=== PATIENT | female | born 1990 | race Caucasian/White ===

== ENCOUNTER → 2017-02-12 | Outpatient (CLI) | payer SELFPAY ==
[~2017-02-12] MED LIST: BIRTH CONTROL PILL PO; CARI350T19 PO; CLON1TAB PO; HYDR50IN3 PO; antidepressant
[2017-02-12 17:23] LABS: CONTROL LINE UCG INT CTR LINE PRESENT
[2017-02-12 17:56] LABS: BASO % 0.6 % (0.0-1.0); EOS # 0.2 K/mm3 (0.0-0.50); EOS % 2.5 % (0.0-3.0); LARGE UNSTAINED CELL # 0.2 K/mm3 (0.0-0.4); LARGE UNSTAINED CELL % 1.8 % (0.0-4.0); LYMPH # 3.5 K/mm3 (1.5-6.5); MEAN CORPUSCULAR HEMOGLOBIN 29.8 pg (27.0-33.0); MEAN CORPUSCULAR HGB CONC 33.6 g/dl (32.0-36.5); MEAN CORPUSCULAR VOLUME 88.8 fl (80.0-96.0); MONO # 0.4 K/mm3 (0.0-0.8); MONO % 5.1 % (0.0-5.0); NEUTROPHILS # 4.2 K/mm3 (1.8-7.7); PLATELET COUNT, AUTOMATED 249 k/mm3 (150-450); RED CELL DISTRIBUTION WIDTH 12.9 % (11.5-14.5); WHITE BLOOD COUNT 8.5 K/mm3 (4.0-10.0)
[2017-02-12 20:10] LABS: ALBUMIN 4.1 GM/DL (3.2-5.2); ALBUMIN/GLOBULIN RATIO 1.21 (1.00-1.93); ALKALINE PHOSPHATASE 81 U/L (45-117); ALT/SGPT 39 U/L (12-78); ANION GAP 6 MEQ/L (8-16); AST/SGOT 27 U/L (15-37); BILIRUBIN,TOTAL 0.9 MG/DL (0.2-1.0); BLOOD UREA NITROGEN 13 MG/DL (7-18); CARBON DIOXIDE LEVEL 30 MEQ/L (21-32); CHLORIDE LEVEL 100 MEQ/L (98-107); CREATININE FOR GFR 0.96 MG/DL (0.55-1.02); GLOMERULAR FILTRATION RATE > 60.0 (>60); GLUCOSE, FASTING 105 MG/DL (70-105); POTASSIUM SERUM 4.2 MEQ/L (3.5-5.1); SODIUM LEVEL 136 MEQ/L (136-145); TOTAL PROTEIN 7.5 GM/DL (6.4-8.2)
== END ==
LOC: M LAB 16:35
PROVIDERS: ATTEND Family Medicine
DX: Z13.9 Encounter for screening, unspecified (principal); F11.20 Opioid dependence, uncomplicated

== ENCOUNTER → 2017-02-21 | Outpatient (CLI) | payer SELFPAY ==
--- NOTE | 2017-02-21 18:52 | ECGEPIP ---
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
== END ==
LOC: M EKG 14:05
PROVIDERS: ATTEND Family Medicine
DX: Z13.9 Encounter for screening, unspecified (principal); F11.20 Opioid dependence, uncomplicated

== ENCOUNTER 2017-04-16 13:01 | Emergency (ER) | payer OTHER, SELFPAY ==
[~2017-04-16] VITALS: Ht 167.6 cm; Wt 77.5 kg
[2017-04-16 13:02] VITALS: BP 140/93
[2017-04-16] MEDS ORDERED: METH40TA PO (13:17)
== END 2017-04-16 14:10 | disposition home or self-care (01) ==
LOC: M ED 13:56
DX: S40.861A Insect bite (nonvenomous) of right upper arm, initial encounter (principal); S40.862A Insect bite (nonvenomous) of left upper arm, initial encounter; W57.XXXA Bitten or stung by nonvenomous insect and other nonvenomous arthropods, initial encounter; Y92.019 Unspecified place in single-family (private) house as the place of occurrence of the external cause; Y93.9 Activity, unspecified; Y99.9 Unspecified external cause status; J30.81 Allergic rhinitis due to animal (cat) (dog) hair and dander; J30.2 Other seasonal allergic rhinitis; Z79.891 Long term (current) use of opiate analgesic; Z79.3 Long term (current) use of hormonal contraceptives; Z88.1 Allergy status to other antibiotic agents

== ENCOUNTER 2018-09-04 13:36 | Emergency (ER) | payer OTHER ==
[2018-09-04] MEDS: ONDANSETRON 4 MG ORAL DISINTEGRATING TAB (Q0162 PER 1MG) PO (15:30)
== END 2018-09-04 16:24 | disposition home or self-care (01) ==
LOC: M ED 13:36
DX: R11.2 Nausea with vomiting, unspecified (principal)
CPT/HCPCS: Q0162

== ENCOUNTER → 2018-09-15 | Outpatient (CLI) | payer OTHER ==
[2018-09-15 11:37] LABS: HEMATOCRIT 42.7 % (36.0-47.0); HEMOGLOBIN 14.8 g/dl (12.0-15.5); MEAN CORPUSCULAR HEMOGLOBIN 29.2 pg (27.0-33.0); MEAN CORPUSCULAR HGB CONC 34.7 g/dl (32.0-36.5); MEAN CORPUSCULAR VOLUME 84.4 fl (80.0-96.0); PLATELET COUNT, AUTOMATED 295 10^3/uL (150-450); RED BLOOD COUNT 5.06 10^6/uL (4.00-5.40); RED CELL DISTRIBUTION WIDTH 12.6 % (11.5-14.5); WHITE BLOOD COUNT 11.6 10^3/uL (4.0-10.0)
[2018-09-15 13:03] LABS: CONTROL LINE HCG INT CTR LINE PRESENT; HCG, SERUM QUALITATIVE POSITIVE (NEGATIVE)
[2018-09-15 13:06] LABS: CHLAMYDIA DNA AMPLIFICATION NEGATIVE (NEGATIVE); GC DNA AMPLIFICATION NEGATIVE (NEGATIVE)
[2018-09-15 13:39] LABS: ALBUMIN 3.6 GM/DL (3.2-5.2); ALBUMIN/GLOBULIN RATIO 0.86 (1.00-1.93); ALKALINE PHOSPHATASE 82 U/L (45-117); ALT/SGPT 61 U/L (12-78); ANION GAP 13 MEQ/L (8-16); AST/SGOT 28 U/L (7-37); BILIRUBIN,TOTAL 0.5 MG/DL (0.2-1.0); BLOOD UREA NITROGEN 11 MG/DL (7-18); CALCIUM LEVEL 9.1 MG/DL (8.5-10.1); CARBON DIOXIDE LEVEL 23 MEQ/L (21-32); CHLORIDE LEVEL 101 MEQ/L (98-107); CREATININE FOR GFR 0.66 MG/DL (0.55-1.30); GLOMERULAR FILTRATION RATE > 60.0 (>60); GLUCOSE, FASTING 95 MG/DL (70-100); POTASSIUM SERUM 3.6 MEQ/L (3.5-5.1); SODIUM LEVEL 137 MEQ/L (136-145); TOTAL PROTEIN 7.8 GM/DL (6.4-8.2)
== END ==
LOC: M LAB 10:32
DX: F11.20 Opioid dependence, uncomplicated (principal)
CPT/HCPCS: 93005

== ENCOUNTER → 2018-11-26 | Outpatient (CLI) | payer OTHER ==
[~2018-11-26] MED LIST changes: +METH40TA PO; +SUBO8MIS SL; +ZOFR4TAB14 PO
--- NOTE | 2018-11-26 22:31 | REP ---
Clinical: Anatomical evaluation. Comparison: None . Findings: Examination demonstrates a single live intrauterine in breech presentation. motion is identified by technologist. Placenta is noted anterior and grade grade 1 without evidence for placenta previa or abruption. Amniotic fluid volume is normal. Cervix measures 4.2 cm in length and appears closed. No evidence for nuchal cord. Gestational age by current measurements 17 weeks 6 days with CANDICE 04/30/2019 . FHR equals 147 beats per minute. BPD 4.0 cm 18 weeks 0 days HC 14.4 cm 17 weeks 4 days AC 12.4 cm 18 weeks 0 days FL 2.7 cm 18 weeks 1 day HL 2.7 cm 18 weeks 4 days HC/AC ratio 1.16 Estimated weight 222 grams ( 52nd percentile). Anatomical assessment demonstrates normal structures including cranium, choroid plexus, cavum, cerebellum/posterior fossa, facial features, lungs, four-chamber heart/ left ventricular outflow tract, diaphragm, stomach, cord insertion/three-vessel cord, kidneys/bladder, and extremities. Limited evaluation of the right cardiac ventricular outflow tract and spine noted. Impression: Single live intrauterine in breech presentation demonstrating appropriate weight to age by current measurements. Limited evaluation of the right cardiac ventricular outflow tract and spine noted. Remainder of the anatomical assessment is complete and normal. Electronically Signed by Stu Morris MD 11/26/2018 10:21 P
== END ==
LOC: M SMT 12:55
PROVIDERS: ATTEND Advanced Practice Midwife
DX: Z34.82 Encounter for supervision of other normal pregnancy, second trimester (principal); Z3A.18 18 weeks gestation of pregnancy

== ENCOUNTER → 2018-12-17 | Outpatient (CLI) | payer OTHER ==
[2018-12-17 18:41] LABS: BASO % 0.2 % (0.0-1.0); EOS # 0.1 10^3/uL (0.0-0.50); EOS % 1.1 % (0.0-3.0); HEMATOCRIT 38.7 % (36.0-47.0); HEMOGLOBIN 12.9 g/dl (12.0-15.5); LYMPH # 2.1 10^3/uL (1.5-6.5); LYMPH % 23.4 % (24.0-44.0); MEAN CORPUSCULAR HEMOGLOBIN 29.3 pg (27.0-33.0); MEAN CORPUSCULAR HGB CONC 33.3 g/dl (32.0-36.5); MONO # 0.4 10^3/uL (0.0-0.8); MONO % 4.3 % (0.0-5.0); NEUTROPHILS # 6.2 10^3/uL (1.8-7.7); NEUTROPHILS % 70.5 % (36.0-66.0); PLATELET COUNT, AUTOMATED 235 10^3/uL (150-450); WHITE BLOOD COUNT 8.8 10^3/uL (4.0-10.0)
[2018-12-17 21:01] LABS: CHLAMYDIA DNA AMPLIFICATION NEGATIVE (NEGATIVE); GC DNA AMPLIFICATION NEGATIVE (NEGATIVE)
[2018-12-19 11:25] LABS: HEPATITIS C VIRUS ABY INDEX > 11.0 INDEX (<0.8); HIV 1&2 SCREEN CENTAUR NEGATIVE (NEGATIVE); RUBELLA IgG QUALITATIVE IMMUNE (IMMUNE)
== END ==
LOC: M SMT 14:54
PROVIDERS: ATTEND Advanced Practice Midwife
DX: Z34.91 Encounter for supervision of normal pregnancy, unspecified, first trimester (principal)

== ENCOUNTER → 2019-01-12 | Outpatient (CLI) | payer OTHER ==
--- NOTE | 2019-01-13 03:11 | REP ---
Clinical: Anatomical evaluation. Comparison: 11/26/2018 . Findings: Examination demonstrates a single live intrauterine in cephalic presentation. motion is identified by technologist. Placenta is noted anterior and grade grade 1 without evidence for placenta previa or abruption. Amniotic fluid volume is normal. Cervix measures 4.3 cm in length and appears closed. No evidence for nuchal cord. Gestational age by first US 24 weeks 4 days with CANDICE 04/30/2019 . Gestational age by current measurements 24 weeks 3 days with CANDICE 05/01/2019 . FHR equals 157 beats per minute. Estimated weight 775 grams ( 59th percentile). Anatomical assessment demonstrates normal structures including cranium, choroid plexus, cavum, cerebellum/posterior fossa, facial features, lungs, four-chamber heart/ventricular outflow tracts, diaphragm, stomach, cord insertion/three-vessel cord, kidneys/bladder, spine, and extremities. Impression: Single live intrauterine in cephalic presentation demonstrating appropriate interval growth. In conjunction with prior examination anatomical assessment is complete and normal. No gross abnormalities are identified. Electronically Signed by Stu Morris MD 01/13/2019 03:03 A
== END ==
LOC: M SMT 12:41
PROVIDERS: ATTEND Advanced Practice Midwife
DX: Z34.82 Encounter for supervision of other normal pregnancy, second trimester (principal); Z3A.24 24 weeks gestation of pregnancy

== ENCOUNTER 2019-02-06 10:16 | Outpatient (CLI) | payer OTHER ==
[~2019-02-06] VITALS: Ht 167.6 cm; Wt 96.0 kg
[2019-02-06] MEDS ORDERED: PRENTAB9 PO (10:47)
[2019-02-06] MEDS ORDERED: ACET25TA12 PO (10:47)
[2019-02-06] MEDS ORDERED: METH10CO PO (10:55)
[2019-02-06] MEDS ORDERED: LAMI1TAB7 PO (10:55)
[2019-02-06] MEDS ORDERED: TUMS500C PO (10:55)
[2019-02-06] MEDS ORDERED: CLON-412 PO (10:55)
[2019-02-06 10:56] VITALS: BP 111/58
[2019-02-06 12:01] LABS: ALBUMIN 2.8 GM/DL (3.2-5.2); ALT/SGPT 24 U/L (12-78); AMYLASE 39 U/L (25-115); BILIRUBIN,TOTAL 0.3 MG/DL (0.2-1.0); BLOOD UREA NITROGEN 10 MG/DL (7-18); CALCIUM LEVEL 8.5 MG/DL (8.5-10.1); CARBON DIOXIDE LEVEL 24 MEQ/L (21-32); CHLORIDE LEVEL 102 MEQ/L (98-107); CREATININE FOR GFR 0.49 MG/DL (0.55-1.30); GLOMERULAR FILTRATION RATE > 60.0 (>60); GLUCOSE, FASTING 83 MG/DL (70-100); LIPASE 72 U/L (73-393); POTASSIUM SERUM 4.1 MEQ/L (3.5-5.1); SODIUM LEVEL 135 MEQ/L (136-145); TOTAL PROTEIN 6.9 GM/DL (6.4-8.2)
--- NOTE | 2019-02-06 12:07 | REP ---
RIGHT UPPER QUADRANT SONOGRAPHY: HISTORY: Epigastric pain. A history of hepatitis C. at 28 weeks. FINDINGS: heart rate is documented at 140 beats per minute during examination. Scanning through right upper quadrant demonstrates a normal sized thin-walled gallbladder without evidence of stone or polyp. Common bile duct is normal measuring 0.4 cm in greatest diameter. No focal liver lesion is seen. Liver is not felt to be enlarged. Pancreas is obscured by abdominal gas. There is no evidence of ascites or right renal abnormality. The right kidney measures 10.2 x 5.6 x 5.1 cm. IMPRESSION: Pancreas not seen. Otherwise negative right upper quadrant sonography. Electronically Signed by Christopher Bertrand MD 02/06/2019 01:38 P
[2019-02-06 12:09] LABS: HEPATITIS B SURFACE ANTIBODY POSITIVE (POSITIVE)
[2019-02-06] MEDS ORDERED: ACETAMINOPHEN 500 MG TAB PO PRN (12:15)
--- NOTE | 2019-02-06 15:06 | IPNPDOC ---
Text Note Date of Service The patient was seen on 02/06/19. NOTE 28yo CANDICE 04/30/19. Presents @ 28w1d with complaints of epigastric pain. Re ports TUMs and zantac are not helping. Denies bleeding, LOF. No UC Cat I tracing. Hx significant for known Hep C without confirmatory labs drawn as of yet. LFT, amylase, lipase and liver sono WNL Remainder of Hepatitis panel pending. Started omeprazole 20mg daily. Enc low fat diet Discharged home. Keep appt next week VS,Fishbone, I+O VS, Fishbone, I+O Laboratory Tests 02/06/19 11:24 Calcium Level 8.5, Aspartate Amino Transf (AST/SGOT) 19, Alanine Ami notransferase (ALT/SGPT) 24, Alkaline Phosphatase 101, Total Bilirubin 0.3, Total Protein 6.9, Albumin 2.8 L Vital Signs Date Time Temp Pulse Resp B/P (MAP) Pulse Ox O2 Delivery O2 Flow Rate FiO2 02/06/19 10:56 99.3 86 111/58 (75) Jacqueline yLn CNM Feb 06, 2019 15:06
[2019-02-06] MEDS ORDERED: OMEPRAZOLE 20 MG CAP PO ONE (15:15)
[2019-02-06 17:05] LABS: AMPHETAMINES URINE REFLEX NEGATIVE (NEGATIVE); BARBITURATES URINE REFLEX NEGATIVE (NEGATIVE); BENZODIAZEPINES URINE REFLEX NEGATIVE (NEGATIVE); CANNABINOIDS URINE REFLEX NEGATIVE (NEGATIVE); COCAINE METABOLITE URINE REFLE NEGATIVE (NEGATIVE); OPIATES URINE REFLEX NEGATIVE (NEGATIVE); PHENCYCLIDINE URINE REFLEX NEGATIVE (NEGATIVE)
[2019-02-06 17:09] LABS: METHADONE URINE REFLEX PENDING CONFIRMATION (NEGATIVE)
[2019-02-12 00:07] LABS: HEPATITIS A IgG TOTAL Negative (Negative); HEPATITIS C QUANTITATION 358380 IU/mL (.); HEPATITIS C VIRUS GENOTYPE 3 (.)
[2019-02-17 10:11] LABS: GC Methadone 7070 ng/mL (Cutoff=100); Methadone Positive (.)
== END 2019-02-06 15:22 | disposition home or self-care (01) ==
LOC: M LDO 10:16
PROVIDERS: ATTEND Advanced Practice Midwife
DX: O26.893 Other specified pregnancy related conditions, third trimester (principal); R10.13 Epigastric pain; Z3A.28 28 weeks gestation of pregnancy
CPT/HCPCS: 36415; 59025; 76705; 80053; 80307; 81596; 82150; 83690; 86706; 86708; 87522; 87902; G0480

== ENCOUNTER → 2019-03-09 | Outpatient (CLI) | payer OTHER ==
[~2019-03-09] MED LIST changes: +ACET25TA12 PO; +CLON-412 PO; +LAMI1TAB7 PO; +METH10CO PO; +PRENTAB9 PO; +TUMS500C PO
[2019-03-09 13:24] LABS: HEMATOCRIT 39.5 % (36.0-47.0); HEMOGLOBIN 13.1 g/dl (12.0-15.5); MEAN CORPUSCULAR HEMOGLOBIN 29.2 pg (27.0-33.0); MEAN CORPUSCULAR HGB CONC 33.2 g/dl (32.0-36.5); PLATELET COUNT, AUTOMATED 269 10^3/uL (150-450); RED BLOOD COUNT 4.49 10^6/uL (4.00-5.40)
== END ==
LOC: M LAB 12:14
PROVIDERS: ATTEND Advanced Practice Midwife
DX: O98.412 Viral hepatitis complicating pregnancy, second trimester (principal); Z3A.00 Weeks of gestation of pregnancy not specified

== ENCOUNTER 2019-04-05 16:39 | Observation (INO) | payer OTHER ==
[~2019-04-05] VITALS: Ht 167.6 cm; Wt 103.6 kg
[2019-04-05] MEDS ORDERED: ZANTTAB PO (17:20)
[2019-04-05] MEDS ORDERED: LR 1,000 ML IV SCH (17:30)
[2019-04-05] MEDS ORDERED: BETAMETHASONE SOLUSPAN 6MG/ML INJ 5ML (J0702) IM SCH (17:30)
[2019-04-05 18:14] LABS: HEMATOCRIT 41.1 % (36.0-47.0); HEMOGLOBIN 13.8 g/dl (12.0-15.5); MEAN CORPUSCULAR HEMOGLOBIN 29.9 pg (27.0-33.0); MEAN CORPUSCULAR HGB CONC 33.6 g/dl (32.0-36.5); PLATELET COUNT, AUTOMATED 221 10^3/uL (150-450); RED BLOOD COUNT 4.62 10^6/uL (4.00-5.40); WHITE BLOOD COUNT 12.2 10^3/uL (4.0-10.0)
[2019-04-05 18:20] LABS: AMPHETAMINES URINE REFLEX NEGATIVE (NEGATIVE); BARBITURATES URINE REFLEX NEGATIVE (NEGATIVE); BENZODIAZEPINES URINE REFLEX NEGATIVE (NEGATIVE); CANNABINOIDS URINE REFLEX NEGATIVE (NEGATIVE); COCAINE METABOLITE URINE REFLE NEGATIVE (NEGATIVE); OPIATES URINE REFLEX NEGATIVE (NEGATIVE); PHENCYCLIDINE URINE REFLEX NEGATIVE (NEGATIVE)
[2019-04-05 21:36] LABS: METHADONE URINE REFLEX PENDING CONFIRMATION (NEGATIVE)
[2019-04-06] MEDS ORDERED: ceFAZolin SOD 1 GM in D5W MINI-BAG PLUS 50 ML IV SCH (02:00)
[2019-04-08 18:27] LABS: GC Methadone 15915 ng/mL (Cutoff=100); Methadone Positive (.)
== END 2019-04-05 23:05 | disposition home or self-care (01) ==
LOC: M LDO 16:39 → M LDI 17:22
PROVIDERS: ADMIT Obstetrics & Gynecology; ATTEND Obstetrics & Gynecology
DX: O60.03 Preterm labor without delivery, third trimester (principal); O99.323 Drug use complicating pregnancy, third trimester; O98.413 Viral hepatitis complicating pregnancy, third trimester; Z79.891 Long term (current) use of opiate analgesic; Z3A.36 36 weeks gestation of pregnancy; F11.11 Opioid abuse, in remission
CPT/HCPCS: 59025; 80307; 85027; 86780; 86850; 86900; 86901; 87081; 96372; 96374; G0480; J0690; J0702

== ENCOUNTER 2019-04-06 17:34 | Outpatient (CLI) | payer OTHER ==
[~2019-04-06] VITALS: Ht 167.6 cm; Wt 104.7 kg
[~2019-04-06 17:34] MED LIST changes: +ZANTTAB PO
[2019-04-06 17:51] VITALS: BP 129/75
[2019-04-06] MEDS ORDERED: BETAMETHASONE SOLUSPAN 6MG/ML INJ 5ML (J0702) IM ONE (18:00)
[2019-04-06 18:26] VITALS: BP 141/66
[2019-04-06 18:40] VITALS: BP 144/77
[2019-04-06 18:41] VITALS: BP 122/58
== END 2019-04-06 18:48 | disposition home or self-care (01) ==
LOC: M LDO 17:34
PROVIDERS: ATTEND Advanced Practice Midwife
DX: O26.899 Other specified pregnancy related conditions, unspecified trimester (principal); Z3A.00 Weeks of gestation of pregnancy not specified
CPT/HCPCS: 59025; 96372; J0702

== ENCOUNTER 2019-04-20 14:06 | Inpatient (IN) | payer OTHER ==
[2019-04-20] VITALS (32 sets, daily range): BP systolic 127–181; BP diastolic 68–115
[~2019-04-20] VITALS: Ht 167.6 cm; Wt 105.9 kg
[2019-04-20] MEDS ORDERED: LACTATED RINGER'S 1000 ML IV STA (14:52)
[2019-04-20] MEDS ORDERED: LAMO150T2 PO (15:19)
[2019-04-20 15:42] LABS: HEMATOCRIT 40.6 % (36.0-47.0); HEMOGLOBIN 13.8 g/dl (12.0-15.5); MEAN CORPUSCULAR HEMOGLOBIN 30.4 pg (27.0-33.0); MEAN CORPUSCULAR VOLUME 89.4 fl (80.0-96.0); PLATELET COUNT, AUTOMATED 200 10^3/uL (150-450); RED BLOOD COUNT 4.54 10^6/uL (4.00-5.40); WHITE BLOOD COUNT 11.7 10^3/uL (4.0-10.0)
[2019-04-20] MEDS ORDERED: FENTANYL 2MCG/ML ROPIVACAINE 0.2% IN 0.9% NACL 100ML IVBAG As Ordered ONE (16:55)
[2019-04-20] MEDS ORDERED: EPIDURAL/PCA KEYS XX PRN (17:15)
[2019-04-20] MEDS ORDERED: ONDANSETRON 4MG/2ML VIAL (J2405) IV PRN (17:15)
[2019-04-20] MEDS ORDERED: REFRIGERATOR IV KEYS XX PRN (17:15)
[2019-04-20] MEDS ORDERED: diphenhydrAMINE INJ 50MG/ML VIAL (J1200) IV PRN (17:15)
[2019-04-20] MEDS ORDERED: ePHEDrine SULFATE 25 MG/5 ML(5MG/ML) SYRINGE IV PRN (17:15)
[2019-04-20] MEDS ORDERED: LACTATED RINGER'S 1000 ML IV PRN (17:15)
[2019-04-20] MEDS ORDERED: NALOXONE INJ 0.4 MG/1 ML VIAL (J2310) IV PRN (17:15)
[2019-04-20] MEDS ORDERED: EPIDURAL COMMENT XX SCH (17:15)
[2019-04-20] MEDS: FENTANYL/ROPIVACAINE/NACL BAG 100 ML EPIDURAL SCH ×2 (17:27→23:18)
[2019-04-20] MEDS: LR 1,000 ML IV SCH ×2 (17:37→20:33)
[2019-04-20] MEDS ORDERED: OXYTOCIN DRIP 30 UNITS in APPROPRIATE DILUENT 1 EA IV SCH (18:00)
[2019-04-20 18:39] LABS: ALT/SGPT 28 U/L (12-78); BILIRUBIN,TOTAL 0.3 MG/DL (0.2-1.0); CREATININE FOR GFR 0.77 MG/DL (0.55-1.30); GLOMERULAR FILTRATION RATE > 60.0 (>60); LDH LACTATE DEHYDROGENASE 191 U/L (84-246); URIC ACID 6.7 MG/DL (2.6-6.0)
--- NOTE | 2019-04-20 18:46 | HPE ---
DATE OF ADMISSION: 04/20/2019 HISTORY OF PRESENT ILLNESS: The patient is a 2, para 1-0-0-1 at 38 weeks, 4 days gestation with an estimated date of delivery (CANDICE) of 04/30/2019 based off of her second trimester ultrasound at 17 weeks, 6 days. Her has been complicated by a history of hepatitis C, a history of heroin use which she is in [facility] with methadone treatment, depression, attention deficit hyperactivity disorder (ADHD). She is taking clonidine and Topamax for anxiety. She has also been on Latuda during her . The patient presents to labor and delivery with complaints of spontaneous rupture of membrane at 1330 today. She reports clear fluid. She reports occasional contractions and active movement. The patient denies vaginal bleeding. HISTORY: In May 2010, the patient had a spontaneous vaginal delivery at 37 weeks, 2 days gestation of a living female weighing 6 pounds, 9 ounces, complicated by gestational diabetes. The patient does not have custody of this child. LABORATORY DATA: Her laboratories include her blood type being O+ with antibody screen that is negative. Her initial hemoglobin and hematocrit is 12.9 and 38.7 with platelets of 235. Rubella is immune. VDRL is nonreactive. Urine culture has no growth. Hepatitis B surface antigen is negative. HIV is negative. Hepatitis C is reactive. Gonorrhea and Chlamydia are both negative. Her glucose tolerance test she did not do as she did fingersticks. Her GBS is negative. PAST MEDICAL HISTORY: Depression, attention deficit hyperactivity disorder (ADHD), hepatitis C, history of abnormal Pap smears. PAST SURGICAL HISTORY: Tonsillectomy and right shoulder surgery. FAMILY HISTORY: Diabetes, heart disease, hypertension, depression. SOCIAL HISTORY: The patient is a former smoker. She quit during this . She denies alcohol abuse or use and drug abuse or use during . She does have a history of heroin addition which she is enrolled in [facility] for and is on their methadone program. She has a history of sexually transmitted infection. She had Chlamydia in 2017. heart rate is 130, moderate variability, positive accelerations, no decelerations. Contractures are every 3-8 minutes. Sterile vaginal examination is 5 cm dilated, 90% effaced, -1 station with gross rupture of membranes that is clear. Positive Nitrazine noted. PHYSICAL EXAMINATION: VITAL SIGNS: Her initial blood pressure was 151/91, heart rate 69, respiratory rate 18, temperature 96 degrees. A repeat blood pressure was 160/95. GENERAL: Alert and oriented times three. RESPIRATORY: Regular rate with no use of accessory muscles. ABDOMEN: Gravid, soft with palpation and nontender to touch. Cephalic presentation noted with Melvin and with sterile vaginal examination (SVE). LOWER EXTREMITIES: Generalized edema. No clonus. ASSESSMENT: Intrauterine (IUP) at 38 weeks, 4 days gestation, spontaneous rupture of membrane, active labor, category 1 heart rate tracing, group B Streptococcus (GBS) negative. PLAN: Admit the patient to labor and delivery. IV and laboratories per protocol. Preeclamptic laboratories and spot urine are ordered due to elevated blood pressures. Anesthesia consult per the patient's request. Lactated ringer 800 mL bolus prior to epidural. Out of bed ad isaura. Clear liquid diet. Anticipate cervical change and spontaneous vaginal delivery.
[2019-04-20 19:03] LABS: TOTAL PROTEIN,RANDOM URINE 6.1 MG/DL (0.0-12.0)
[2019-04-20] MEDS ORDERED: ACETAMINOPHEN 500 MG TAB PO ONE (20:15)
[2019-04-20] MEDS ORDERED: OMEPRAZOLE 20 MG CAP PO ONE (22:00)
[2019-04-21] VITALS (12 sets, daily range): BP systolic 135–159; BP diastolic 65–91
[2019-04-21] MEDS ORDERED: SLF 3 ML SYR IV PRN (01:15)
[2019-04-21] MEDS ORDERED: METHYLERGONOVINE MALEATE 0.2 MG TAB PO PRN (01:45)
[2019-04-21] MEDS ORDERED: ACETAMINOPHEN TAB 650MG DOSE (2X325MG) PO PRN (01:45)
[2019-04-21] MEDS ORDERED: IBUPROFEN 600 MG TAB PO PRN (01:45)
[2019-04-21] MEDS ORDERED: ANUSOL HC CREAM 30GM TOP PRN (01:45)
[2019-04-21] MEDS ORDERED: DIBUCAINE 1% OINTMENT 30GM TOP PRN (01:45)
[2019-04-21] MEDS ORDERED: RHOGAM 300 MCG (1500 IU) INJ (J2790) IM SCH (01:45)
[2019-04-21] MEDS ORDERED: MEASLES,MUMPS,RUBELLA VACCINE INJ (MMR-II) (90707) SC SCH (01:45)
[2019-04-21] MEDS ORDERED: OXYTOCIN DRIP 30 UNITS in APPROPRIATE DILUENT 1 EA IV SCH (01:45)
[2019-04-21] MEDS ORDERED: DOCUSATE SODIUM 100 MG CAP PO PRN (01:45)
[2019-04-21] MEDS: IBUPROFEN 800 MG TAB PO PRN ×2 (03:24→13:33)
[2019-04-21] MEDS ORDERED: SLF 3 ML SYR IV SCH (06:00)
[2019-04-21] MEDS: ACETAMINOPHEN 500 MG TAB PO PRN ×2 (06:03→21:12)
[2019-04-21] MEDS ORDERED: PILL CUTTER 1 EACH XX PRN (09:45)
[2019-04-21] MEDS: PRENATAL VITAMINS CHEWABLE TABLET PO SCH (10:00)
[2019-04-21] MEDS: METHADONE 10 MG TAB (S0109) PO SCH (10:01)
[2019-04-21] MEDS: lamoTRIgine 25 MG TAB PO SCH (10:11)
[2019-04-21] MEDS: lamoTRIgine 100MG TAB PO SCH (10:11)
--- NOTE | 2019-04-21 11:30 | DN ---
DATE OF DELIVERY: 04/21/2019 TIME OF DELIVERY: 0018 hours. STATUS: Spontaneous vaginal delivery. Delivered. PROVIDER: Lynne Macdonald CNM, WHNP ANESTHESIA: Epidural. ESTIMATED BLOOD LOSS: 200 mL. FINDINGS: Male, 7 pounds 1 ounce, 3190 grams, scores 9/9. The patient is a 29-year-old female who is now a 2, para 2-0-0-2, who presented to labor and delivery on the with complaint of spontaneous rupture of membrane at 1330 hours. She progressed to fully dilated at 0010 hours with 31 mL of IV Pitocin. The patient received and epidural for pain management. She pushed to a live male in the ALVINA position with restitution to ROT. The anterior shoulder delivered with ease and the corpus immediately followed. The baby was placed on the maternal abdomen active and crying with stimulation. The cord was clamped times two after 2 minutes and cut by the father of the baby. The placenta delivered spontaneously intact at 0022 hours. Uterine hemostasis was achieved via rapid infusion of IV Pitocin and fundal massage. The perineum, vagina, and cervix was inspected and found to be intact. Mom plans to bottle feed her . They plan on naming him Moi. Both mom and baby are in stable condition. All counts of instruments and sponges are correct.
[2019-04-22 06:29] VITALS: BP 126/81
[2019-04-22] MEDS: PRENATAL VITAMINS CHEWABLE TABLET PO SCH (08:25)
[2019-04-22] MEDS: lamoTRIgine 25 MG TAB PO SCH (08:25)
[2019-04-22] MEDS: lamoTRIgine 100MG TAB PO SCH (08:25)
[2019-04-22] MEDS: METHADONE 10 MG TAB (S0109) PO SCH (08:27)
[2019-04-22] MEDS: IBUPROFEN 800 MG TAB PO PRN (08:34)
--- NOTE | 2019-04-22 10:04 | NUR ---
Day 1 Status post , uncomplicated Subjective Pain is well controlled. Lochia decreasing and minimal. Voiding spontaneously. Tolerating a regular diet. Ambulating without any assistance. Denies any subjective fever/chills/nausea/vomiting/headache/visual changes/shortness of breath/chest pain. Objective Vitals: Normotensive, normal heart rate, afebrile, adequate urine output. Heart: regular, rate, and rhythm. no murmurs/gallops/rubs Lungs: clear to auscultation bilaterally, no wheezes/crackles/rales/ronchi Abd: soft, nontender, nondistended, uterine fundus is 2cm below umbilicus and firm Ext: no significant edema, nontender, negative Cooper's bilaterally. Assessment/Plan: day 1. Recovering well. Hemodynamically stable, afebrile, good pain control. -Routine care -Discharge to home today. -Routine infectious, fever, pain, and bleeding precautions reviewed Fiorella Abel.Rosalinda., F.A.C.O.G.
== END 2019-04-22 13:00 | disposition home or self-care (01) | DRG 560 ==
LOC: M LDO 14:06 → M LDI 14:58 → M OBS 04-21 05:36
PROVIDERS: ADMIT Advanced Practice Midwife; ATTEND Advanced Practice Midwife
PROC: 10E0XZZ Delivery of Products of Conception, External Approach (ICD-10-PCS; principal; 2019-04-21)
DX: O99.344 Other mental disorders complicating childbirth (principal); F41.9 Anxiety disorder, unspecified; Z37.0 Single live birth; Z3A.38 38 weeks gestation of pregnancy

== ENCOUNTER → 2019-06-25 | Outpatient (CLI) | payer OTHER ==
[~2019-06-25] MED LIST changes: +LAMO150T2 PO; +ZANT150T40 PO; -ZANTTAB PO
[2019-06-25 13:09] LABS: HEMATOCRIT 40.8 % (36.0-47.0); MEAN CORPUSCULAR HEMOGLOBIN 28.6 pg (27.0-33.0); MEAN CORPUSCULAR HGB CONC 31.9 g/dl (32.0-36.5); MEAN CORPUSCULAR VOLUME 89.9 fl (80.0-96.0); PLATELET COUNT, AUTOMATED 272 10^3/uL (150-450); RED BLOOD COUNT 4.54 10^6/uL (4.00-5.40); WHITE BLOOD COUNT 7.5 10^3/uL (4.0-10.0)
[2019-06-25 15:15] LABS: BLOOD UREA NITROGEN 17 MG/DL (7-18); CARBON DIOXIDE LEVEL 29 MEQ/L (21-32); CHLORIDE LEVEL 102 MEQ/L (98-107); CREATININE FOR GFR 0.79 MG/DL (0.55-1.30); GLOMERULAR FILTRATION RATE > 60.0 (>60); GLUCOSE, FASTING 89 MG/DL (70-100); POTASSIUM SERUM 4.6 MEQ/L (3.5-5.1); SODIUM LEVEL 139 MEQ/L (136-145)
[2019-06-25 15:16] LABS: ALBUMIN 3.5 GM/DL (3.2-5.2); ALT/SGPT 80 U/L (12-78); BILIRUBIN,TOTAL 0.4 MG/DL (0.2-1.0); CALCIUM LEVEL 9.5 MG/DL (8.5-10.1); TOTAL PROTEIN 7.4 GM/DL (6.4-8.2)
[2019-06-26 10:23] LABS: HEPATITIS B SURFACE ANTIGEN NEGATIVE (NEGATIVE)
[2019-06-26 10:24] LABS: HEPATITIS B SURFACE ANTIBODY NEGATIVE (POSITIVE)
[2019-06-30 14:29] LABS: HEPATITIS A IgG TOTAL Negative (Negative); HEPATITIS B CORE ANTIBODY IGG Negative (Negative); HEPATITIS C QUANTITATION 1239370 IU/mL (.); HEPATITIS C VIRUS GENOTYPE 3 (.)
== END ==
LOC: M LAB 12:09
PROVIDERS: ATTEND Family Medicine
DX: B18.2 Chronic viral hepatitis C (principal)

== ENCOUNTER → 2019-08-21 | Outpatient (CLI) | payer OTHER ==
--- NOTE | 2019-08-21 13:57 | REP ---
REASON: Foot pain. No trauma. PRIORS: None. FINDINGS: The joint spaces are symmetric and relatively well maintained. There is no evidence of acute fracture or destructive osseous lesion. IMPRESSION: Negative. Electronically Signed by Miguelangel Middleton DO 08/21/2019 04:17 P
== END ==
LOC: M RAD 09:49
PROVIDERS: ATTEND Family Medicine
DX: M25.571 Pain in right ankle and joints of right foot (principal); M79.671 Pain in right foot

== ENCOUNTER → 2019-09-03 | Outpatient (REF) | payer OTHER ==
[2019-09-03 15:38] LABS: BASO % 0.5 % (0.0-1.0); EOS # 0.3 10^3/uL (0.0-0.5); EOS % 3.3 % (0.0-3.0); HEMATOCRIT 42.1 % (36.0-47.0); HEMOGLOBIN 13.8 g/dl (12.0-15.5); LYMPH # 2.6 10^3/uL (1.5-5.0); LYMPH % 31.8 % (24.0-44.0); MEAN CORPUSCULAR HEMOGLOBIN 29.1 pg (27.0-33.0); MEAN CORPUSCULAR HGB CONC 32.8 g/dl (32.0-36.5); MEAN CORPUSCULAR VOLUME 88.6 fl (80.0-96.0); MONO # 0.5 10^3/uL (0.0-0.8); MONO % 6.5 % (0.0-5.0); NEUTROPHILS # 4.7 10^3/uL (1.5-8.5); NEUTROPHILS % 57.8 % (36.0-66.0); PLATELET COUNT, AUTOMATED 272 10^3/uL (150-450); RED BLOOD COUNT 4.75 10^6/uL (4.00-5.40); WHITE BLOOD COUNT 8.2 10^3/uL (4.0-10.0)
[2019-09-03 15:53] LABS: ALBUMIN 3.7 GM/DL (3.2-5.2); ALT/SGPT 28 U/L (12-78); BILIRUBIN,TOTAL 0.2 MG/DL (0.2-1.0); BLOOD UREA NITROGEN 13 MG/DL (7-18); CALCIUM LEVEL 8.9 MG/DL (8.5-10.1); CARBON DIOXIDE LEVEL 28 MEQ/L (21-32); CHLORIDE LEVEL 102 MEQ/L (98-107); CREATININE FOR GFR 0.78 MG/DL (0.55-1.30); FREE T4 0.83 NG/DL (0.76-1.46); GLOMERULAR FILTRATION RATE > 60.0 (>60); GLUCOSE, FASTING 78 MG/DL (70-100); POTASSIUM SERUM 4.4 MEQ/L (3.5-5.1); SODIUM LEVEL 137 MEQ/L (136-145); TOTAL PROTEIN 7.6 GM/DL (6.4-8.2)
[2019-09-08 14:07] LABS: HEPATITIS C QUANTITATION HCV Not Detected IU/mL (.)
== END ==
LOC: M SFHCPLAZ 14:00
PROVIDERS: ATTEND Internal Medicine Infectious Disease
DX: R53.82 Chronic fatigue, unspecified (principal); B18.2 Chronic viral hepatitis C

== ENCOUNTER → 2019-11-09 | Outpatient (CLI) | payer OTHER ==
[~2019-11-09] MED LIST changes: -LAMO150T2 PO; +LAMO150T3 PO
[2019-11-09 13:38] LABS: HEMATOCRIT 42.9 % (36.0-47.0); MEAN CORPUSCULAR HEMOGLOBIN 29.4 pg (27.0-33.0); MEAN CORPUSCULAR HGB CONC 32.6 g/dl (32.0-36.5); MEAN CORPUSCULAR VOLUME 90.1 fl (80.0-96.0); PLATELET COUNT, AUTOMATED 251 10^3/uL (150-450); RED BLOOD COUNT 4.76 10^6/uL (4.00-5.40); WHITE BLOOD COUNT 6.1 10^3/uL (4.0-10.0)
[2019-11-09 14:01] LABS: HCG, SERUM QUALITATIVE NEGATIVE (NEGATIVE)
[2019-11-09 14:17] LABS: ALBUMIN 3.7 GM/DL (3.2-5.2); ALT/SGPT 36 U/L (12-78); BILIRUBIN,TOTAL 0.4 MG/DL (0.2-1.0); BLOOD UREA NITROGEN 14 MG/DL (7-18); CALCIUM LEVEL 9.1 MG/DL (8.5-10.1); CARBON DIOXIDE LEVEL 24 MEQ/L (21-32); CHLORIDE LEVEL 102 MEQ/L (98-107); CREATININE FOR GFR 0.79 MG/DL (0.55-1.30); GLOMERULAR FILTRATION RATE > 60.0 (>60); GLUCOSE, FASTING 96 MG/DL (70-100); POTASSIUM SERUM 4.9 MEQ/L (3.5-5.1); SODIUM LEVEL 133 MEQ/L (136-145); TOTAL PROTEIN 7.8 GM/DL (6.4-8.2)
[2019-11-09 14:40] LABS: HEPATITIS B SURFACE ANTIGEN NEGATIVE (NEGATIVE)
[2019-11-09 15:16] LABS: CHLAMYDIA DNA AMPLIFICATION NEGATIVE (NEGATIVE); GC DNA AMPLIFICATION NEGATIVE (NEGATIVE)
[2019-11-09 15:19] LABS: HEPATITIS C VIRUS ABY INDEX > 11.0 INDEX (<0.8)
--- NOTE | 2019-11-09 16:58 | ECGEPIP ---
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 Electronically Signed on 11-09-2019 16:58:32 EST by Sung Dobbs
== END ==
LOC: M LAB 13:04
PROVIDERS: ATTEND Family Medicine
DX: F11.11 Opioid abuse, in remission (principal)

== ENCOUNTER → 2019-12-15 | Outpatient (REF) | payer OTHER | LOC: M LAB REF 09:36 | PROVIDERS: ATTEND Dermatology | DX: D48.9 Neoplasm of uncertain behavior, unspecified (principal) ==

== ENCOUNTER → 2022-01-08 | Outpatient (CLI) | payer OTHER ==
[2022-01-08 10:57] LABS: HEMATOCRIT 42.1 % (36.0-47.0); HEMOGLOBIN 14.1 g/dl (12.0-15.5); MEAN CORPUSCULAR HEMOGLOBIN 29.7 pg (27.0-33.0); MEAN CORPUSCULAR HGB CONC 33.5 g/dl (32.0-36.5); MEAN CORPUSCULAR VOLUME 88.8 fl (80.0-96.0); PLATELET COUNT, AUTOMATED 281 10^3/uL (150-450); RED BLOOD COUNT 4.74 10^6/uL (4.00-5.40); WHITE BLOOD COUNT 8.7 10^3/uL (4.0-10.0)
[2022-01-08 11:37] LABS: ALT/SGPT 31 U/L (12-78); BILIRUBIN,TOTAL 0.2 MG/DL (0.2-1.0); BLOOD UREA NITROGEN 15 MG/DL (7-18); CALCIUM LEVEL 9.9 MG/DL (8.5-10.1); CARBON DIOXIDE LEVEL 29 MEQ/L (21-32); CHLORIDE LEVEL 100 MEQ/L (98-107); CREATININE FOR GFR 0.86 MG/DL (0.55-1.30); GLOMERULAR FILTRATION RATE > 60.0 (>60); GLUCOSE, FASTING 90 MG/DL (70-100); POTASSIUM SERUM 4.4 MEQ/L (3.5-5.1); SODIUM LEVEL 134 MEQ/L (136-145); TOTAL PROTEIN 8.2 GM/DL (6.4-8.2)
[2022-01-08 12:43] LABS: GC DNA AMPLIFICATION NEGATIVE (NEGATIVE)
[2022-01-08 21:55] LABS: HCG, SERUM QUALITATIVE NEGATIVE (NEGATIVE)
[2022-01-09 13:38] LABS: HEPATITIS B SURFACE ANTIGEN NEGATIVE (NEGATIVE)
[2022-01-09 14:07] LABS: HIV 1&2 SCREEN CENTAUR NEGATIVE (NEGATIVE)
[2022-01-09 14:20] LABS: HEPATITIS C VIRUS ABY INDEX > 11.0 INDEX (<0.8)
== END ==
LOC: M LAB 09:54 → M EKG 09:54
PROVIDERS: ATTEND Family Medicine
DX: F11.20 Opioid dependence, uncomplicated (principal)

== ENCOUNTER 2022-10-09 22:37 | Emergency (ER) | payer OTHER ==
[~2022-10-09] VITALS: Ht 167.6 cm; Wt 75.0 kg
[2022-10-09 22:54] VITALS: BP 166/70
[2022-10-10] MEDS ORDERED: ALPRAZolam 0.5 MG TAB PO ONE (00:05)
== END 2022-10-10 03:58 | disposition left against medical advice (07) ==
LOC: EDBD 22:37 → M ED 22:37
DX: J45.909 Unspecified asthma, uncomplicated (principal); F41.9 Anxiety disorder, unspecified; F32.A Depression, unspecified; Z87.891 Personal history of nicotine dependence; B18.9 Chronic viral hepatitis, unspecified; Z88.1 Allergy status to other antibiotic agents; Z91.048 Other nonmedicinal substance allergy status; Z53.9 Procedure and treatment not carried out, unspecified reason

== ENCOUNTER 2022-10-12 16:23 | Inpatient (IN) | payer OTHER ==
[~2022-10-12] VITALS: Ht 157.5 cm; Wt 72.0 kg
[2022-10-12 18:36] LABS: BARBITURATES URINE NEGATIVE (NEGATIVE); BENZODIAZEPINES URINE NEGATIVE (NEGATIVE); COCAINE METABOLITE URINE NEGATIVE (NEGATIVE); OPIATES URINE NEGATIVE (NEGATIVE); PHENCYCLIDINE URINE NEGATIVE (NEGATIVE)
[2022-10-12 18:40] LABS: AMPHETAMINES LEVEL URINE POSITIVE (NEGATIVE); CANNABINOIDS URINE POSITIVE (NEGATIVE); METHADONE URINE POSITIVE (NEGATIVE)
[2022-10-12 18:47] LABS: RSV AMPLIFICATION NEGATIVE (NEGATIVE)
[2022-10-12 20:31] LABS: HEMATOCRIT 42.3 % (36.0-47.0); HEMOGLOBIN 14.4 g/dl (12.0-15.5); MEAN CORPUSCULAR HEMOGLOBIN 30.8 pg (27.0-33.0); MEAN CORPUSCULAR VOLUME 90.6 fl (80.0-96.0); PLATELET COUNT, AUTOMATED 328 10^3/uL (150-450); RED BLOOD COUNT 4.67 10^6/uL (4.00-5.40); WHITE BLOOD COUNT 20.9 10^3/uL (4.0-10.0)
[2022-10-12 20:54] LABS: ETHYL ALCOHOL (ETHANOL) 0.003 % (0.000-0.010)
[2022-10-12 20:55] LABS: ACETAMINOPHEN LEVEL < 2.0 UG/ML (10.0-20.0)
[2022-10-12 20:56] LABS: ALBUMIN 4.1 G/DL (3.2-5.2); ALKALINE PHOSPHATASE 71 U/L (46-116); ALT/SGPT 84 U/L (7.0-40); AST/SGOT 162 U/L (<34); BILIRUBIN,DIRECT 0.4 MG/DL (<0.4); BLOOD UREA NITROGEN 17 MG/DL (9-23); CALCIUM LEVEL 9.4 MG/DL (8.5-10.1); CARBON DIOXIDE LEVEL 25 MMOL/L (20-31); CHLORIDE LEVEL 96 MMOL/L (98-107); GLOMERULAR FILTRATION RATE > 60.0 (>60); GLUCOSE, FASTING 115 MG/DL (60-100); POTASSIUM SERUM 4.2 MMOL/L (3.5-5.1); SALICYLATE LEVEL < 3.0 MG/DL (<30); SODIUM LEVEL 133 MMOL/L (136-145); TOTAL PROTEIN 7.4 G/DL (5.7-8.2)
[2022-10-12 20:58] LABS: THYROID STIMULATING HORMONE 1.059 uIU/ML (0.55-4.78)
[2022-10-12 21:02] LABS: HCG, SERUM QUALITATIVE NEGATIVE (NEGATIVE)
[2022-10-13] MEDS ORDERED: ACETAMINOPHEN TAB 650MG DOSE (2X325MG) PO ONE (00:10)
[2022-10-13] MEDS: DOXYCYCLINE HYCLATE 100MG TABLET PO SCH ×3 (02:07→20:29)
[2022-10-13] MEDS ORDERED: traZODone 50 MG TAB PO PRN (05:15)
[2022-10-13] MEDS ORDERED: MOM 30ML SUSPENSION UDC PO PRN (05:15)
[2022-10-13] MEDS ORDERED: MAALOX 30 ML SUSP *UDC PO PRN (05:15)
[2022-10-13] MEDS ORDERED: NICOTINE 21MG/24HR 1 EA TRANSDERMAL TD PRN (05:15)
[2022-10-13] MEDS: ACETAMINOPHEN TAB 650MG DOSE (2X325MG) PO PRN ×2 (09:04→15:42)
[2022-10-13] MEDS ORDERED: PILL CUTTER 1 EACH XX PRN (13:25)
[2022-10-13] MEDS ORDERED: lamoTRIgine 100MG TAB PO ONE (14:00)
[2022-10-13 16:23] VITALS: BP 142/96
[2022-10-13] MEDS ORDERED: LAMO200T3 PO (17:15)
[2022-10-13] MEDS ORDERED: ADDE30TA PO (17:15)
[2022-10-13] MEDS ORDERED: AMPH1CAP5 PO (17:15)
[2022-10-13] MEDS ORDERED: OXYB5TAB10 PO (17:15)
[2022-10-13] MEDS ORDERED: BUPR15TASR PO (17:15)
[2022-10-13] MEDS ORDERED: HOME MED LIST COMPLETE! XX SCH (17:20)
[2022-10-13] MEDS ORDERED: PROHANCE 279.3MG/ML 15ML VIAL As Ordered ONE (18:16)
[2022-10-13] MEDS: buPROPion **SR TABLET** (ZYBAN) 150MG PO SCH (20:29)
[2022-10-14 06:25] VITALS: BP 127/70
[2022-10-14] MEDS: buPROPion **SR TABLET** (ZYBAN) 150MG PO SCH ×2 (09:22→21:54)
[2022-10-14] MEDS: DOXYCYCLINE HYCLATE 100MG TABLET PO SCH ×2 (09:22→21:54)
[2022-10-14] MEDS: lamoTRIgine 100MG TAB PO SCH (09:22)
[2022-10-14] MEDS: ACETAMINOPHEN TAB 650MG DOSE (2X325MG) PO PRN ×2 (09:30→16:02)
[2022-10-14 10:09] LABS: BASO # 0.1 10^3/uL (0.0-0.2); BASO % 0.4 % (0.0-1.0); EOS # 0.2 10^3/uL (0.0-0.5); EOS % 1.8 % (0.0-3.0); HEMATOCRIT 47.2 % (36.0-47.0); HEMOGLOBIN 15.6 g/dl (12.0-15.5); LYMPH % 15.9 % (24.0-44.0); MEAN CORPUSCULAR HEMOGLOBIN 30.6 pg (27.0-33.0); MEAN CORPUSCULAR HGB CONC 33.1 g/dl (32.0-36.5); MEAN CORPUSCULAR VOLUME 92.7 fl (80.0-96.0); MONO # 0.8 10^3/uL (0.0-0.8); MONO % 5.9 % (2.0-8.0); NEUTROPHILS # 9.6 10^3/uL (1.5-8.5); NEUTROPHILS % 75.4 % (36.0-66.0); PLATELET COUNT, AUTOMATED 327 10^3/uL (150-450); RED BLOOD COUNT 5.09 10^6/uL (4.00-5.40); WHITE BLOOD COUNT 12.7 10^3/uL (4.0-10.0)
[2022-10-14 10:30] LABS: ERYTHROCYTE SEDIMENTATION RATE 15 mm/hr (0-20)
[2022-10-14] MEDS: IBUPROFEN 600MG TAB PO PRN ×2 (12:11→21:55)
[2022-10-14 16:33] VITALS: BP 148/92
[2022-10-14] MEDS ORDERED: ONDANSETRON 4MG ORAL DISINTEGRATING TAB PO PRN (20:25)
[2022-10-14] MEDS ORDERED: PALIPERIDONE 3MG ER TAB (INVEGA) PO SCH (21:00)
[2022-10-15 06:50] VITALS: BP 155/72
[2022-10-15] MEDS: DOXYCYCLINE HYCLATE 100MG TABLET PO SCH ×2 (07:56→20:32)
[2022-10-15] MEDS: lamoTRIgine 100MG TAB PO SCH (07:56)
[2022-10-15] MEDS: buPROPion **SR TABLET** (ZYBAN) 150MG PO SCH ×2 (07:56→20:32)
[2022-10-15] MEDS: IBUPROFEN 600MG TAB PO PRN ×2 (08:49→20:33)
[2022-10-15] MEDS: ACETAMINOPHEN TAB 650MG DOSE (2X325MG) PO PRN (10:27)
[2022-10-15] MEDS: PALIPERIDONE 3MG ER TAB (INVEGA) PO SCH ×2 (14:41→20:32)
[2022-10-15 19:00] VITALS: BP 153/78
[2022-10-16 06:10] VITALS: BP 172/88
[2022-10-16] MEDS: ACETAMINOPHEN TAB 650MG DOSE (2X325MG) PO PRN ×2 (06:38→18:38)
[2022-10-16 07:08] VITALS: BP 140/86
[2022-10-16] MEDS: buPROPion **SR TABLET** (ZYBAN) 150MG PO SCH ×2 (08:07→21:17)
[2022-10-16] MEDS: DOXYCYCLINE HYCLATE 100MG TABLET PO SCH ×2 (08:07→21:18)
[2022-10-16] MEDS: lamoTRIgine 100MG TAB PO SCH (08:07)
[2022-10-16] MEDS: PALIPERIDONE 3MG ER TAB (INVEGA) PO SCH ×2 (08:07→21:17)
[2022-10-16 20:12] VITALS: BP 131/90
[2022-10-16] MEDS: IBUPROFEN 600MG TAB PO PRN (21:18)
[2022-10-17 06:34] VITALS: BP 150/84
[2022-10-17] MEDS: PALIPERIDONE 3MG ER TAB (INVEGA) PO SCH ×2 (07:58→20:04)
[2022-10-17] MEDS: buPROPion **SR TABLET** (ZYBAN) 150MG PO SCH ×2 (07:58→20:04)
[2022-10-17] MEDS: lamoTRIgine 100MG TAB PO SCH (07:58)
[2022-10-17] MEDS: DOXYCYCLINE HYCLATE 100MG TABLET PO SCH ×2 (07:59→20:04)
[2022-10-17] MEDS: ACETAMINOPHEN TAB 650MG DOSE (2X325MG) PO PRN ×2 (08:00→16:08)
[2022-10-17] MEDS: IBUPROFEN 600MG TAB PO PRN (14:38)
[2022-10-17 18:09] VITALS: BP 153/88
[2022-10-17] MEDS: RAMELTEON 8 MG TAB (ROZEREM) PO SCH (21:24)
[2022-10-18 06:30] VITALS: BP 142/102
[2022-10-18] MEDS: PALIPERIDONE 3MG ER TAB (INVEGA) PO SCH ×2 (08:58→21:14)
[2022-10-18] MEDS: DOXYCYCLINE HYCLATE 100MG TABLET PO SCH ×2 (08:58→21:14)
[2022-10-18] MEDS: ACETAMINOPHEN TAB 650MG DOSE (2X325MG) PO PRN (08:58)
[2022-10-18] MEDS: lamoTRIgine 100MG TAB PO SCH (08:58)
[2022-10-18] MEDS: buPROPion **SR TABLET** (ZYBAN) 150MG PO SCH ×2 (08:58→21:14)
[2022-10-18] MEDS: IBUPROFEN 600MG TAB PO PRN (12:27)
[2022-10-18 15:08] VITALS: BP 143/90
[2022-10-18] MEDS: RAMELTEON 8 MG TAB (ROZEREM) PO SCH (21:14)
[2022-10-19 06:28] VITALS: BP 157/80
[2022-10-19] MEDS: PALIPERIDONE 3MG ER TAB (INVEGA) PO SCH (08:53)
[2022-10-19] MEDS: buPROPion **SR TABLET** (ZYBAN) 150MG PO SCH (08:53)
[2022-10-19] MEDS: DOXYCYCLINE HYCLATE 100MG TABLET PO SCH (08:53)
[2022-10-19] MEDS: lamoTRIgine 100MG TAB PO SCH (08:54)
[2022-10-19] MEDS: ACETAMINOPHEN TAB 650MG DOSE (2X325MG) PO PRN (08:54)
[2022-10-19] MEDS ORDERED: DOXY100T PO (09:10)
[2022-10-19] MEDS ORDERED: RAME8TAB2 PO (09:10)
[2022-10-19] MEDS ORDERED: LAMO200T3 PO (09:10)
[2022-10-19] MEDS ORDERED: BUPR15TASR PO (09:10)
[2022-10-19] MEDS ORDERED: PALI1TAB2 PO (09:10)
== END 2022-10-19 10:38 | disposition home or self-care (01) | DRG 753 ==
LOC: M ED 16:23 → M ED INP 10-13 05:14 → M PSY 10-13 05:40
PROVIDERS: ADMIT Psychiatry & Neurology Psychiatry; ATTEND Psychiatry & Neurology Psychiatry
DX: F31.9 Bipolar disorder, unspecified (principal); R22.41 Localized swelling, mass and lump, right lower limb; Z87.891 Personal history of nicotine dependence; D72.829 Elevated white blood cell count, unspecified; L03.031 Cellulitis of right toe; Z79.899 Other long term (current) drug therapy; Z88.1 Allergy status to other antibiotic agents; Z20.822 Contact with and (suspected) exposure to COVID-19; Z91.51 Personal history of suicidal behavior

== ENCOUNTER → 2023-01-01 | Outpatient (CLI) | payer OTHER ==
[~2023-01-01] MED LIST changes: +ADDE30TA PO; +AMPH1CAP5 PO; +BUPR15TASR PO; +DOXY100T PO; +LAMO200T3 PO; +OXYB5TAB10 PO; +PALI1TAB2 PO; +RAME8TAB2 PO
== END ==
LOC: M WHC 09:08
PROVIDERS: ATTEND Physician Assistant Medical
DX: N60.02 Solitary cyst of left breast (principal); L72.0 Epidermal cyst

== ENCOUNTER 2023-08-26 14:54 | Inpatient (IN) | payer OTHER ==
[~2023-08-26] VITALS: Ht 167.6 cm; Wt 66.6 kg
[~2023-08-26 14:54] MED LIST changes: +ADDE10CA3 PO; +ADDE1TAB14 PO; -OXYB5TAB10 PO; +OXYB5TAB11 PO
[2023-08-26] MEDS ORDERED: MED REC IN PROGRESS XX SCH (15:45)
[2023-08-26] MEDS ORDERED: METHADONE 10MG TAB PO ONE (16:45)
[2023-08-26] MEDS ORDERED: LORazepam 2 MG/ML 1ML VIAL IM STA (16:56)
[2023-08-26] MEDS ORDERED: OLANZapine INTRAMUSCULAR 10MG VIAL IM ONE (17:00)
[2023-08-26 17:04] LABS: HEMATOCRIT 38.7 % (36.0-47.0); HEMOGLOBIN 13.4 g/dl (12.0-15.5); MEAN CORPUSCULAR HEMOGLOBIN 30.4 pg (27.0-33.0); MEAN CORPUSCULAR HGB CONC 34.6 g/dl (32.0-36.5); MEAN CORPUSCULAR VOLUME 87.8 fl (80.0-96.0); PLATELET COUNT, AUTOMATED 260 10^3/uL (150-450); RED BLOOD COUNT 4.41 10^6/uL (4.00-5.40); WHITE BLOOD COUNT 9.6 10^3/uL (4.0-10.0)
[2023-08-26 21:52] LABS: AMPHETAMINES LEVEL URINE NEGATIVE (NEGATIVE)
[2023-08-26 21:53] LABS: BENZODIAZEPINES URINE NEGATIVE (NEGATIVE)
[2023-08-26 21:54] LABS: BARBITURATES URINE NEGATIVE (NEGATIVE); COCAINE METABOLITE URINE NEGATIVE (NEGATIVE); OPIATES URINE NEGATIVE (NEGATIVE); PHENCYCLIDINE URINE NEGATIVE (NEGATIVE)
[2023-08-26 21:55] LABS: CANNABINOIDS URINE POSITIVE (NEGATIVE); METHADONE URINE POSITIVE (NEGATIVE)
[2023-08-26 22:03] LABS: ETHYL ALCOHOL (ETHANOL) 0.004 % (0.000-0.010)
[2023-08-26 22:05] LABS: ALBUMIN 4.1 G/DL (3.2-5.2); ALKALINE PHOSPHATASE 52 U/L (46-116); ALT/SGPT 29 U/L (7.0-40); AST/SGOT 17 U/L (<34); BILIRUBIN,DIRECT 0.2 MG/DL (<0.4); BILIRUBIN,TOTAL 0.6 MG/DL (0.3-1.2); BLOOD UREA NITROGEN 15 MG/DL (9-23); CALCIUM LEVEL 9.5 MG/DL (8.5-10.1); CARBON DIOXIDE LEVEL 31 MMOL/L (20-31); CHLORIDE LEVEL 99 MMOL/L (98-107); CREATININE FOR GFR 0.57 MG/DL (0.55-1.30); GLOMERULAR FILTRATION RATE > 60.0 (>60); GLUCOSE, FASTING 107 MG/DL (60-100); POTASSIUM SERUM 4.2 MMOL/L (3.5-5.1); SALICYLATE LEVEL < 3.0 MG/DL (<30); SODIUM LEVEL 136 MMOL/L (136-145)
[2023-08-26] MEDS ORDERED: traZODone 50 MG TAB PO PRN (22:15)
[2023-08-26] MEDS ORDERED: diphenhydrAMINE 25MG CAP PO PRN (22:15)
[2023-08-26] MEDS ORDERED: OLANZapine ORAL DISINTEGRATING TAB 5MG PO PRN (22:15)
[2023-08-26] MEDS ORDERED: MAALOX 30 ML SUSP *UDC PO PRN (22:15)
[2023-08-26] MEDS ORDERED: MOM 30ML SUSPENSION UDC PO PRN (22:15)
[2023-08-26 22:23] LABS: HCG, SERUM QUALITATIVE NEGATIVE (NEGATIVE)
[2023-08-26] MEDS ORDERED: MED REC CURRENTLY UNOBTAINABLE XX SCH (23:15)
[2023-08-27 00:56] VITALS: BP 117/76; TEMP 98.1; O2SAT 100
[2023-08-27 06:45] VITALS: BP 136/62; TEMP 98.3; O2SAT 99
[2023-08-27] MEDS: ACETAMINOPHEN TAB 650MG DOSE (2X325MG) PO PRN (08:31)
[2023-08-27] MEDS ORDERED: cloNIDine 0.1MG TABLET PO PRN (10:25)
[2023-08-27] MEDS ORDERED: BUPR-71 PO (11:18)
[2023-08-27] MEDS ORDERED: ADDE10TA PO (11:18)
[2023-08-27] MEDS ORDERED: AMPH1CAP14 PO (11:18)
[2023-08-27] MEDS ORDERED: METH10CO3 PO (11:18)
[2023-08-27] MEDS ORDERED: LAMO200T3 PO (11:18)
[2023-08-27 12:04] LABS: FREE T4 1.79 NG/DL (0.89-1.76)
[2023-08-27] MEDS ORDERED: HOME MED LIST COMPLETE! XX SCH (13:35)
[2023-08-27] MEDS: METHADONE 10MG TAB PO SCH (15:08)
[2023-08-27 16:23] VITALS: BP 143/76; TEMP 98; O2SAT 100
[2023-08-27] MEDS: oxyBUTYnin 5 MG TAB PO SCH (20:37)
[2023-08-27] MEDS: IBUPROFEN 400MG TAB PO PRN (20:39)
[2023-08-28 06:59] VITALS: BP 103/91; TEMP 99.1; O2SAT 98
[2023-08-28] MEDS: oxyBUTYnin 5 MG TAB PO SCH ×2 (07:57→20:58)
[2023-08-28] MEDS: METHADONE 10MG TAB PO SCH (07:59)
[2023-08-28] MEDS: buPROPion **SR TABLET** (ZYBAN) 150MG PO SCH ×2 (07:59→20:57)
[2023-08-28] MEDS: ACETAMINOPHEN TAB 650MG DOSE (2X325MG) PO PRN ×2 (08:00→20:57)
[2023-08-28 16:34] VITALS: BP 148/84; TEMP 98.8; O2SAT 96
[2023-08-28] MEDS: lamoTRIgine 100MG TAB PO SCH (20:57)
[2023-08-28] MEDS: OLANZapine 5 MG TAB PO SCH (20:59)
[2023-08-29 06:08] VITALS: BP 138/77; TEMP 98.9; O2SAT 100
[2023-08-29] MEDS: ACETAMINOPHEN TAB 650MG DOSE (2X325MG) PO PRN ×2 (08:54→20:14)
[2023-08-29] MEDS: buPROPion **SR TABLET** (ZYBAN) 150MG PO SCH ×2 (08:54→20:14)
[2023-08-29] MEDS: METHADONE 10MG TAB PO SCH (08:55)
[2023-08-29] MEDS: oxyBUTYnin 5 MG TAB PO SCH ×2 (08:55→20:14)
[2023-08-29] MEDS: IBUPROFEN 400MG TAB PO PRN (13:06)
[2023-08-29 18:31] VITALS: BP 139/82; TEMP 97.7
[2023-08-29] MEDS: lamoTRIgine 100MG TAB PO SCH (20:14)
[2023-08-29] MEDS: OLANZapine 5 MG TAB PO SCH (21:51)
[2023-08-30 06:15] VITALS: BP 138/73; TEMP 98.2; O2SAT 96
[2023-08-30] MEDS: buPROPion **SR TABLET** (ZYBAN) 150MG PO SCH ×2 (08:46→20:48)
[2023-08-30] MEDS: METHADONE 10MG TAB PO SCH (08:46)
[2023-08-30] MEDS: oxyBUTYnin 5 MG TAB PO SCH ×2 (08:46→20:49)
[2023-08-30] MEDS ORDERED: cloNIDine 0.05MG 1/2 TABLET PO PRN (09:00)
[2023-08-30 16:50] VITALS: BP 139/76; TEMP 98.9; O2SAT 100
[2023-08-30] MEDS: IBUPROFEN 400MG TAB PO PRN (18:20)
[2023-08-30] MEDS: lamoTRIgine 100MG TAB PO SCH (20:48)
[2023-08-30] MEDS: OLANZapine 10 MG TAB PO SCH (20:49)
[2023-08-31 06:44] VITALS: BP 120/56; TEMP 96.9; O2SAT 98
[2023-08-31] MEDS: buPROPion **SR TABLET** (ZYBAN) 150MG PO SCH ×2 (08:16→21:15)
[2023-08-31] MEDS: METHADONE 10MG TAB PO SCH (08:16)
[2023-08-31] MEDS: oxyBUTYnin 5 MG TAB PO SCH ×2 (08:18→21:00)
[2023-08-31] MEDS: IBUPROFEN 400MG TAB PO PRN (08:32)
[2023-08-31 09:05] VITALS: BP 124/90
[2023-08-31] MEDS: ACETAMINOPHEN TAB 650MG DOSE (2X325MG) PO PRN (14:51)
[2023-08-31 16:31] VITALS: BP 140/94; TEMP 98.9; O2SAT 100
[2023-08-31] MEDS: lamoTRIgine 100MG TAB PO SCH (21:15)
[2023-08-31] MEDS: OLANZapine 10 MG TAB PO SCH (21:51)
[2023-09-01 06:40] VITALS: BP 140/63; TEMP 98.1; O2SAT 99
[2023-09-01] MEDS: oxyBUTYnin 5 MG TAB PO SCH ×2 (09:00→20:49)
[2023-09-01] MEDS: METHADONE 10MG TAB PO SCH (09:05)
[2023-09-01] MEDS: buPROPion **SR TABLET** (ZYBAN) 150MG PO SCH ×2 (09:05→20:52)
[2023-09-01 16:19] VITALS: BP 148/83; TEMP 98.2; O2SAT 98
[2023-09-01] MEDS: ACETAMINOPHEN TAB 650MG DOSE (2X325MG) PO PRN (16:19)
[2023-09-01] MEDS: IBUPROFEN 400MG TAB PO PRN (20:51)
[2023-09-01] MEDS: lamoTRIgine 100MG TAB PO SCH (20:52)
[2023-09-01] MEDS: OLANZapine 10 MG TAB PO SCH (23:11)
[2023-09-02 06:40] VITALS: BP 157/85; TEMP 97.9; O2SAT 98
[2023-09-02] MEDS: buPROPion **SR TABLET** (ZYBAN) 150MG PO SCH (08:20)
[2023-09-02] MEDS: METHADONE 10MG TAB PO SCH (08:20)
[2023-09-02] MEDS: IBUPROFEN 400MG TAB PO PRN (08:20)
[2023-09-02] MEDS: oxyBUTYnin 5 MG TAB PO SCH (08:22)
[2023-09-02] MEDS ORDERED: LAMO100T80 PO (10:28)
[2023-09-02] MEDS ORDERED: OXYB5TAB11 PO (10:28)
[2023-09-02] MEDS ORDERED: OLAN1TAB20 PO (10:28)
[2023-09-02] MEDS ORDERED: CLON-412 PO (10:28)
[2023-09-09] MEDS ORDERED: METH-1177 PO (07:48)
[2023-09-09] MEDS ORDERED: CLONI1TA PO (10:49)
[2023-09-09] MEDS ORDERED: OLAN1TAB20 PO (10:49)
[2023-09-09] MEDS ORDERED: METH10CO PO (11:00)
== END 2023-09-02 12:35 | disposition home or self-care (01) | DRG 753 ==
LOC: M ED 14:54 → M ED INP 22:11 → M PSY 08-27 00:40
PROVIDERS: ADMIT Psychiatry & Neurology Psychiatry; ATTEND Student in an Organized Health Care Education/Training Program
DX: F39 Unspecified mood [affective] disorder (principal); F31.9 Bipolar disorder, unspecified; F12.90 Cannabis use, unspecified, uncomplicated; F11.90 Opioid use, unspecified, uncomplicated; R45.851 Suicidal ideations; Z88.0 Allergy status to penicillin; Z79.899 Other long term (current) drug therapy; F43.10 Post-traumatic stress disorder, unspecified; F41.9 Anxiety disorder, unspecified; G89.29 Other chronic pain; J30.1 Allergic rhinitis due to pollen

== ENCOUNTER → 2025-09-17 | Outpatient (CLI) | payer BC ==
[~2025-09-17] MED LIST changes: +ADDE10TA PO; +AMPH1CAP14 PO; +BUPR-71 PO; +CLONI1TA PO; +LAMO100T80 PO; +METH-1177 PO; +METH10CO3 PO; +OLAN1TAB20 PO; -OXYB5TAB11 PO; +OXYB5TAB14 PO
[2025-09-17 17:59] LABS: ALT/SGPT 22 U/L (7.0-40); AST/SGOT 24 U/L (<34); CALCIUM LEVEL 8.8 MG/DL (8.5-10.1); CARBON DIOXIDE LEVEL 28 MMOL/L (20-31); CHLORIDE LEVEL 97 MMOL/L (98-107); CREATININE FOR GFR 0.69 MG/DL (0.55-1.30); GLOMERULAR FILTRATION RATE > 90.0 (>60); POTASSIUM SERUM 3.8 MMOL/L (3.5-5.1); SODIUM LEVEL 136 MMOL/L (136-145)
[2025-09-17 18:04] LABS: PLATELET COUNT, AUTOMATED 254 10^3/uL (150-450)
[2025-09-17 18:31] LABS: HIV 1&2 SCREEN NEGATIVE (NEGATIVE)
[2025-09-17 18:44] LABS: HEPATITIS C VIRUS ABY INDEX > 11.00 INDEX (<0.8)
[2025-09-17 19:35] LABS: GC DNA AMPLIFICATION NEGATIVE (NEGATIVE)
[2025-09-17 19:56] LABS: HCG, SERUM QUALITATIVE NEGATIVE (NEGATIVE)
[2025-09-21 15:03] LABS: HCV RNA QUANTITATION <15 NOT DETECTED IU/mL (NOT DETECTED); HCV RNA log10 <1.18 NOT DETECTED Log IU/mL (NOT DETECTED)
== END ==
LOC: M WUC 12:52
PROVIDERS: ATTEND Family Medicine
DX: F11.20 Opioid dependence, uncomplicated (principal)